=== PATIENT | male | born 1950 | race Caucasian/White ===

== ENCOUNTER 2021-04-27 12:04 | Emergency (ER) | payer MEDICARE, OTHER, MEDICAID ==
[~2021-04-27] VITALS: Ht 172.7 cm; Wt 89.8 kg
== END 2021-04-27 14:32 | disposition home or self-care (01) ==
LOC: ER1 12:04
DX: Z23 Encounter for immunization (principal); U07.1 COVID-19; J44.9 Chronic obstructive pulmonary disease, unspecified; I10 Essential (primary) hypertension; F17.200 Nicotine dependence, unspecified, uncomplicated; Z90.49 Acquired absence of other specified parts of digestive tract
CPT/HCPCS: 71046; 99283; M0243